=== PATIENT | male | born 1945 | race Two or more races ===

== ENCOUNTER 2017-01-06 11:18 | Emergency (ER) | payer MEDICARE, OTHER ==
[2017-01-06 11:58] LABS: Hematocrit 40.8 % (42.0-52.0); Hemoglobin 13.5 gm/dL (13.5-18.0); Mean Cell Volume 83.1 fl (78-100); Mean Corpuscular Hemoglobin 27.5 pg (27-31); Mean Corpuscular Hgb Conc 33.1 g/dl (32-36); Mean Platelet Volume 11.3 fl (6.0-9.5); Neutrophil # 3.1 K/mm3 (1.3-6.0); Neutrophil % 45.7 % (42-75.0); Platelet Count 199 K/mm3 (150-450); Red Blood Count 4.91 M/mm3 (4.7-6.0); Red Cell Distribution Width 13.4 % (11.5-14.0); White Blood Count 6.7 K/mm3 (4.0-10.5)
--- OUTSIDE RECORDS SUMMARY | 2017-01-06 12:08 | XMS REPORT | Continuity of Care Document ---
:1945 Author Organization [facility] ([facility]) Address [address] [place] [address] Phone [phone] Care Team Providers Name Role Phone Provider, No-Primary Care Primary Care Provider Unavailable Source Comments This disclosure is being made pursuant to the Care Everywhere program, applicable federal and state laws, and may not contain all informaitonavailable regarding this patient.[facility] ([facility]) Active Allergies and Adverse Reactions Allergen Noted Date Severity Reactions Comments Doxycycline 09/11/2016 Urticaria (Hives) Had a reaction at [facility] [id number] Reductase 08/08/2012 Arthralgia Inhibitors Current Medications Prescription Sig. Disp. Refills Start Date End Date Status metoPROLol tartrate 25 Take 25 mg by Active mg tablet mouth 2 times daily. omeprazole 20 mg Take 40 mg by Active extended release mouth daily. capsule terazosin 5 mg capsule Take 5 mg by Active mouth at bedtime. terbinafine 1 % cream apply topically Active 2 times daily. triamcinolone 0.1 % apply topically Active cream 2 times daily. Apply a thin layer to affected area. SUPPLY ACCU-CHEK JEFFRY Active test strips colestipol 1 gram Take 4 g by mouth Active tablet 2 times daily. finasteride 5 mg Take 5 mg by Active tablet mouth daily. fluticasone 50 use 2 Sprays into Active mcg/Actuation nasal both nostrils spray daily. glipiZIDE 5 mg tablet Take 5 mg by Active mouth 2 times daily with meals. lisinopril 40 mg Take 40 mg by Active tablet mouth daily. loratadine 10 mg Take 10 mg by Active tablet mouth daily. metFORMIN 1,000 mg Take 1 tablet 40 tablet 0 01/03/2016 Active tablet (1,000 mg total) by mouth 2 times daily with meals. amoxicillin 500 mg Take 1 capsule 21 capsule 0 09/01/2016 Active capsule (500 mg total) by mouth 3 times daily. Active Problems No known active problems Social History Tobacco Use Types Packs/Day Years Used Date Never Smoker Smokeless Tobacco: Never Used Alcohol Use Drinks/Week oz/Week Comments No Last Filed Vital Signs Vital Sign Reading Time Taken Blood Pressure 156/80 02/17/2016 1:50 PM CDT Pulse 72 09/24/2015 3:15 PM TAX REPRESENTATIVE Temperature 36.9 C (98.5 F) 09/24/2015 3:15 PM TAX REPRESENTATIVE Respiratory Rate 24 08/22/2015 4:24 PM TAX REPRESENTATIVE Height 1.778 m (5' 10") 12/11/2013 10:53 AM CDT Weight 189.604 kg (418 lb) 09/17/2015 3:29 PM TAX REPRESENTATIVE Body Mass Index 59.98 09/17/2015 3:29 PM TAX REPRESENTATIVE Oxygen Saturation 94% 09/24/2015 3:15 PM TAX REPRESENTATIVE Plan of Care Health Maintenance Due Date Last Done Comments HCV Screening 1945 Hepatitis B Vaccine (1 of 3 - Primary Series) 1945 Tdap Vaccine 1955 Lipid Disorder Screening 1962 Td Vaccine 1962 Colonoscopy 1994 Prostate Cancer Screening 1994 Zoster Vaccine 2004 Pneumococcal Vaccine (1 of 2 - PCV13) 2009 Influenza Vaccine: Seasonal (Season Ended) 2017 Results from Last 3 Months Not on file
--- NOTE | 2017-01-06 12:11 | ERNOTE ---
Chest Pain/Cardiac HPI Date of Service: 01/06/17 Chief Complaint: Chest Pain Time Seen by Provider: 01/06/17 11:40 Source: patient Exam Limitations: no limitations Immunizations: IMMUNIZATION HX Immunizations Up to Date Yes History of Influenza Vaccine More Information Required Hx Pneumococcal Vaccination More Information Required Allergies/Adverse Reactions: Allergies Jksranq-Dsj-Kef Reductase Inhibitor Allergy (Verified 01/06/17 11:32) Home Medications: HOME MEDICATIONS Aspirin [Aspirin Chewable] 81 mg PO DAILY 03/05/16 [Last Taken Unknown] Finasteride [Proscar] 5 mg PO DAILY 03/05/16 [Last Taken Unknown] Loratadine [Claritin] 10 mg PO DAILY 03/05/16 [Last Taken Unknown] Magnesium 250 mg PO DAILY 03/05/16 [Last Taken Unknown] Metoprolol Tartrate [Lopressor] 25 mg PO BID 03/05/16 [Last Taken Unknown] Potassium 99 mg PO DAILY 03/05/16 [Last Taken Unknown] Saw [place] Xtr/Zinc Picolin [Gnp [place] 80 mg Capsule] 1 each PO DAILY 03/05/16 [Last Taken Unknown] Tamsulosin HCl [Flomax] 0.4 mg PO DAILY 03/05/16 [Last Taken Unknown] glipiZIDE [Glucotrol Xl] 10 mg PO BID 03/05/16 [Last Taken Unknown] metFORMIN HCL [Metformin HCl ER] 1,000 mg PO BIDWM 03/05/16 [Last Taken Unknown] Cholecalciferol (Vitamin D3) [Vitamin D3] 3,000 unit PO DAILY #30 tablet [Last Taken Unknown] Lisinopril [Zestril] 20 mg PO BID #30 tablet 03/06/16 [Last Taken Unknown] Azithromycin [Zithromax] 500 mg PO NOW #6 tab 01/06/17 [Last Taken Unknown] Narrative: Patient presents to the ED with chest pain. he relates he woke up with it a little before 6am today and it has been constant ever since. He denies trauma. He localizes it to his left anterior chest wall with a finger. There is no pain anywhere else and there is no surrounding pain but point chest wall tenderness that reproduces his pain. No SOB. He relates he had this a year ago and it ended up being bronchitis so he wanted to get it checked. He denies fever, increased cough, hemoptysis, no calf pain or leg swelling. Denies SOB or any other Sx. No DVT Sx. He swam and did water aerobics today and there was no exertional pain. Timing: constant Severity/Quality: moderate Location: left chest Chest Pain Radiation: no radiation Activities at Onset: none Modifying Factors - Improves: Present: nothing Modifying Factors - Worsens: Present: other - palpation. Absent: breathing Associated Symptoms: Present: denies symptoms Prior Treatment: Denies: recently seen Review of Systems - Review of Systems Constitutional: Absent: fever ENT: Present: no symptoms reported Respiratory: Absent: shortness of breath Cardiology: Present: See HPI Gastrointestinal/Abdominal: Absent: abdominal pain Genitourinary: Present: no symptoms reported Neurological: Absent: weakness - Patient's Past Medical History Patient History - Medical: Anesthesia Reaction, Arthritis, Cataracts, Diabetes Type 2, GERD, Obesity, Osteoarthritis, Renal Failure Patient History - Cardiac/Respiratory: Bronchitis, Hypertension, Hyperlipidemia , CPAP/BiPAP Home Use, Sleep Apnea Patient History - Cancer: No Hx of Cancer Patient History - Surgical Procedures: Hernia Repair Patient History - Other: None - Family History Brother Family History - Medical: Mother Family History - Medical: , Diabetes Type 2 Family History - Cardiac/Respiratory: Coronary Heart Disease Father Family History - Medical: Family History - Cardiac/Respiratory: COPD, Hypertension, Hyperlipidemia, CPAP/ BiPAP Home Use Family History - Cancer: No pertinent family hx - Social History Living Situations: home Abuse History: No History of abuse Psych History: No pertinent hx Alcohol Use: none Drug Use: none - Immunizations Immunizations Up to Date: Yes Hx Pneumococcal Vaccination: More Information Required to Determine History of Influenza Vaccine: More Information Required to Determine Physical Exam - Physical Exam General Appearance: Present: alert, no apparent distress Eye Exam: Normal inspection: bilateral, PERRL: bilateral Ears, Nose, Throat: Present: normal ENT inspection Neck: Present: normal inspection Respiratory: Present: no respiratory distress, normal breath sounds, no accessory muscle use, lungs clear, chest tenderness, other - There is point tenderness that he points out as the location of the pain. With palpation there is no surrounding tenderness but significant point tenderness on the left approx 6th costochondral cartilage. Even light palpation here completely reproduces his pain and symptoms. Clinically this is musculoskeletal chest wall pain. Cardiovascular/Chest: Present: regular rate, rhythm, normal peripheral pulses Gastrointestinal/Abdominal: Present: normal bowel sounds, nontender, soft Back Exam: Present: normal range of motion Extremity Exam: Present: non-tender, other - no fidings of DVT Neurological Exam: Present: alert, normal mood/affect, no motor/sensory deficits Skin Exam: Absent: skin rash ED Progress - Results and Orders Patient's Lab Results:: I have reviewed the patient's lab results. - Vital Signs Patient's Vital Signs:: I have reviewed the patient's vital signs. Vital Signs: Vital Signs 01/06/17 01/06/17 11:25 11:36 Temperature 36.8 C Pulse Rate 65 67 Respiratory 16 Rate Blood Pressure 166/72 O2 Sat by Pulse 98 Oximetry - EKG EKG: NSR EKG read: Interp. by me EKG Comments: NSR rate 64. Non-specific changes. No STEMI. No clear change from prior - X-Ray X-Ray #1 X-Ray: chest Interpretation: Reviewed by me X-ray Comments: I reviewed chest x-ray report per radiology. - Progress/Reassessment Chief Complaint: Chest Pain Progress Note-Subjective: 01/06/17 12:37 Clinically this is all reproducible chest wall pain, atypical. Point tenderness that reproduces his lewis. Nothing clinically would suggest PE or aortic dissection. No STEMI or clear acute EKG changes with neg trop 6 hrs and reproducible pain, I do not feel he needs further r/o. His feels he has been coughing more and since the last time he had this he had bronchitis he would like to be treated. Antibiotic was given last time, so I will do that. His potassium was a little high, he takes oral potassium at home so I discussed that. He wants to go home. I discussed warning signs and reasons to return as well as the need for close f/u. Departure - Departure Clinical Impression: Atypical chest pain, Chest wall pain Disposition: Home self-care Condition: Stable Additional Instructions[facility] as possible. Take antibiotic as directed. Return for increased pain, trouble breathing or if your condition worsens or changes in any way. Prescriptions: Azithromycin [Zithromax] 500 mg PO NOW #6 tab
[2017-01-06 12:19] LABS: ALT 49 U/L (19-67); AST 28 U/L (0-48); Albumin * 3.5 gm/dl (3.4-5.0); Alkaline Phosphatase * 54 U/L (50-170); BUN/Creatinine Ratio 18.6 (9.0-21.6); Bilirubin, Total 0.3 mg/dL (0.0-1.1); Blood Urea Nitrogen 16 mg/dL (6-23); Ca. Corrected For Albumin 9.3 mg/dL (8.4-10.2); Calcium * 9.2 mg/dL (7.9-10.9); Chloride 99 mmol/L (97-106); Glucose * 90 mg/dL (70-110); Potassium 4.8 mmol/L (3.4-4.6); Sodium 136 mmol/L (132-142); Total Protein 7.7 gm/dL (6.2-8.2); Troponin I Less than 0.017 ng/ml (0.00-0.10)
[2017-01-06 12:23] LABS: Anion Gap 10.7 mmol/L (6.8-13.8); Carbon Dioxide 31.1 mmol/L (24-32.6)
[2017-01-06 12:48] VITALS: BP 122/65
== END 2017-01-06 13:16 | disposition home or self-care (01) ==
LOC: ER 11:18
DX: R07.89 Other chest pain (principal); E11.9 Type 2 diabetes mellitus without complications; I10 Essential (primary) hypertension; K21.9 Gastro-esophageal reflux disease without esophagitis; E78.5 Hyperlipidemia, unspecified

== ENCOUNTER 2017-05-08 13:01 | Emergency (ER) | payer MEDICARE, OTHER ==
--- NOTE | 2017-05-08 14:04 | ERNOTE ---
Medical Problem HPI - Narrative Date of Service: 05/08/17 - General Chief Complaint: Chest Pain Time Seen by Provider: 05/08/17 13:53 Source: patient, family Exam Limitations: no limitations - Immun/Allergies/Home Medications Immunizations: IMMUNIZATION HX Immunizations Up to Date Yes History of Influenza Vaccine Yes Hx Pneumococcal Vaccination Yes Allergies/Adverse Reactions: Allergies Cwwlxgn-Xys-Phs Reductase Inhibitor Allergy (Verified 05/08/17 13:12) Home Medications: HOME MEDICATIONS RX: Aspirin [Aspirin Chewable] 81 mg PO DAILY 03/05/16 [Last Taken Unknown] RX: Finasteride [Proscar] 5 mg PO DAILY 03/05/16 [Last Taken Unknown] RX: Loratadine [Claritin] 10 mg PO DAILY 03/05/16 [Last Taken Unknown] RX: Magnesium 250 mg PO DAILY 03/05/16 [Last Taken Unknown] RX: Metoprolol Tartrate [Lopressor] 25 mg PO BID 03/05/16 [Last Taken Unknown] RX: Potassium 99 mg PO DAILY 03/05/16 [Last Taken Unknown] RX: Saw [place] Xtr/Zinc Picolin [Gnp [place] 80 mg Capsule] 1 each PO DAILY 03/05/16 [Last Taken Unknown] RX: Tamsulosin HCl [Flomax] 0.4 mg PO DAILY 03/05/16 [Last Taken Unknown] RX: glipiZIDE [Glucotrol Xl] 10 mg PO BID 03/05/16 [Last Taken Unknown] RX: metFORMIN HCL [Metformin HCl ER] 1,000 mg PO BIDWM 03/05/16 [Last Taken Unknown] Cholecalciferol (Vitamin D3) [Vitamin D3] 3,000 unit PO DAILY #30 tablet [Last Taken Unknown] hydrALAZINE HCL [Hydralazine HCl] 25 mg PO BID PRN 5 Days #10 tablet 05/08/17 [ Last Taken Unknown] - History of Present History Narrative: Patient states he was not feeling well this morning and had one episode of sharp left upper chest pain lasting 15 minutes. Resolved on its own without intervention. States he then checked his blood pressure and decided he should come in for evaluation. Denies any radiation or any current pain. Timing: resolved prior to arrival Severity: mild Modifying Factors - (Improves): Present: rest Review of Systems - Narrative Narrative: As mentioned before chest pain resolved prior to arrival. Currently states he has no pain or discomfort. Came to ER because he wanted to discuss possibly going from losartan back to lisinopril - Review of Systems Constitutional: Present: no symptoms reported Respiratory: Present: no symptoms reported Cardiology: Present: other - No current chest pain. Lasted 15 minutes earlier this morning. Sharp. Gastrointestinal/Abdominal: Present: no symptoms reported Genitourinary: Present: no symptoms reported Musculoskeletal: Present: no symptoms reported Skin: Present: no symptoms reported Neurological: Present: no symptoms reported Endocrine: Present: no symptoms reported Hematologic/Lymphatic: Present: no symptoms reported - Patient's Past Medical History Patient History - Medical: Diabetes Type 2 Patient History - Cardiac/Respiratory: Hypertension, Hyperlipidemia Patient History - Cancer: No Hx of Cancer Patient History - Surgical Procedures: Total Knee Replacement, T & A, Other Patient History - Other: None - Family History Brother Family History - Medical: Mother Family History - Medical: , Diabetes Type 2 Family History - Cardiac/Respiratory: Coronary Heart Disease Father Family History - Medical: Family History - Cardiac/Respiratory: COPD, Hypertension, Hyperlipidemia, CPAP/ BiPAP Home Use Family History - Cancer: No pertinent family hx - Social History Living Situations: home Abuse History: No History of abuse Psych History: No pertinent hx Smoking Status: Never smoker Have you smoked in the past 12 months: No Alcohol Use: none Drug Use: none - Immunizations Immunizations Up to Date: Yes Hx Pneumococcal Vaccination: Yes History of Influenza Vaccine: Yes Physical Exam - Physical Exam General Appearance: Present: wd/wn, alert, no apparent distress Head Exam: Present: normal inspection Neck: Present: normal inspection, nontender Respiratory: Present: no respiratory distress, normal breath sounds, no accessory muscle use, chest nontender, lungs clear Cardiovascular/Chest: Present: regular rate, rhythm, normal peripheral pulses, systolic murmur Gastrointestinal/Abdominal: Present: normal bowel sounds, nontender, soft, other - Obese Extremity Exam: Present: normal inspection, normal range of motion, extremity edema - 2+ nonpitting bilateral lower extremities. Neurological Exam: Present: alert, oriented, normal mood/affect, no motor/ sensory deficits Skin Exam: Present: normal color, warm/dry ED Progress - Vital Signs Vital Signs: Vital Signs 05/08/17 05/08/17 13:07 13:32 Temperature 36.7 C Pulse Rate 77 72 Respiratory 18 20 Rate Blood Pressure 153/115 O2 Sat by Pulse 94 95 Oximetry - EKG EKG: NSR EKG read: Reviewed by me EKG Comments: Reviewed by Dr. Carroll - X-Ray X-Ray #1 X-Ray: chest Interpretation: Reviewed by me X-ray Comments: Interrepreted by radiologist. - Progress/Reassessment Chief Complaint: General Assessment Progress:: Improved - Remains pain free. BP improved. Departure - Departure Clinical Impression: Chest pain in adult, HTN, goal below 140/90 Disposition: Home Follow Up Needed Condition: Good Instructions: Hypertension, [id number] Additional Instructions: Will start you on a medication which you can take twice a day if your blood pressure is greater than 160/100. Make sure there is at least 8 hrs in between each medication dose. If you develope any dizziness, chest pain, or blood pressure you cannot control let us know. Otherwise follow up with primary provider and see if he would be willing to change you back to lisinopril. Prescriptions: hydrALAZINE HCL [Hydralazine HCl] 25 mg PO BID PRN 5 Days #10 tablet PRN Reason: Hypertension
[2017-05-08 14:06] LABS: Hematocrit 40.8 % (42.0-52.0); Hemoglobin 13.5 gm/dL (13.5-18.0); Mean Corpuscular Hemoglobin 27.8 pg (27-31); Mean Corpuscular Hgb Conc 33.1 g/dl (32-36); Mean Platelet Volume 11.2 fl (6.0-9.5); Neutrophil # 3.7 K/mm3 (1.3-6.0); Neutrophil % 60.5 % (42-75.0); Platelet Count 209 K/mm3 (150-450); Red Blood Count 4.86 M/mm3 (4.7-6.0); Red Cell Distribution Width 13.3 % (11.5-14.0); White Blood Count 6.2 K/mm3 (4.0-10.5)
[2017-05-08] MEDS ORDERED: CLINDAMYCIN HCL 150 MG CAPSULE ONE (14:13)
[2017-05-08] MEDS ORDERED: CLONIDINE HCL 0.1 MG TABLET ONE ×2 (14:17→17:55)
[2017-05-08] MEDS: CLONIDINE HCL 0.1 MG TABLET PO ONE ×2 (14:17→17:57)
[2017-05-08 14:23] LABS: Anion Gap 12.5 mmol/L (6.8-13.8); BUN/Creatinine Ratio 14.1 (9.0-21.6); Blood Urea Nitrogen 14 mg/dL (6-23); Calcium * 9.3 mg/dL (7.9-10.9); Carbon Dioxide 28.1 mmol/L (24-32.6); Chloride 100 mmol/L (97-106); Glucose * 97 mg/dL (70-110); Potassium 4.6 mmol/L (3.4-4.6); Sodium 136 mmol/L (132-142)
[2017-05-08 14:24] LABS: Troponin I Less than 0.017 ng/ml (0.00-0.10)
[2017-05-08 18:27] VITALS: BP 158/98
[2017-05-08] MEDS ORDERED: hydrALAZINE HCL 25 MG TABLET ONE (18:44)
== END 2017-05-08 18:50 | disposition home or self-care (01) ==
LOC: ER 13:01
DX: R07.9 Chest pain, unspecified (principal); I10 Essential (primary) hypertension; E11.9 Type 2 diabetes mellitus without complications; E78.5 Hyperlipidemia, unspecified